=== PATIENT | female | born 1950 | race Caucasian/White ===

== ENCOUNTER 2017-03-24 06:40 | Inpatient (IN) | payer BC, OTHER ==
[~2017-03-24] VITALS: Ht 170.2 cm; Wt 84.2 kg
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
--- NOTE | 2017-03-29 07:15 | OR ---
ADMIT: 03/24/2017 RM/LOC: 527 [facility] MR#: [id number] [facility]#: [id number] [address] [address] LIO CAIN Mirza [address] [place] [address] Operative/Delivery Room Report SEX: F AGE: 66 : 1950 SURGERY DATE: 03/24/2017 SURGEON: Dustin Rose MD PREOPERATIVE DIAGNOSIS: Right displaced midshaft radius and ulna fracture, closed. POSTOPERATIVE DIAGNOSIS: Right displaced midshaft radius and ulna fracture, closed. PROCEDURE: Right midshaft radius and ulna fracture open reduction, internal fixation. MANUAL MACHINIST: Edwina Bernal PA-C. COMPLICATIONS: None. DESCRIPTION OF PROCEDURE: The patient was taken to the operating room, received a general anesthetic. The right upper extremity was prepped and draped in standard fashion. The arm was exsanguinated and tourniquet inflated. An incision was made over the ulnar border and dissection was carried through the subcutaneous tissue. The deep fascia was divided. We identified the ulnar fracture. It was fairly minimally comminuted. We reduced the fracture, placed a 7-hole plate on the ulna. We placed 3 screws proximally and distally in a compression fashion compressing the fracture site. At that point, we had an anatomic reduction of the ulna. AP and lateral images confirmed good screw placement, good fracture reduction. At that point, we irrigated out the wounds. We repaired the deep tissue with 0 Vicryl, subcutaneous with 2-0 Vicryl, and ahmet in the skin. We then made a new incision on the volar distal forearm. Carried dissection down to the subcutaneous tissue and identified the FCR tendon. We retracted the FCR tendon in a radial direction. There was already a large amount of blunt trauma done to the volar forearm musculature. We released a portion of the flexor pollicis off the radial side of the distal radius. Released a little bit of the pronator teres off more proximally. I cleaned off the end of the fracture site. At that point, we reduced the fracture. It was fairly ADMIT: 03/24/2017 RM/LOC: 527 [facility] MR#: [id number] 2620 [facility] [address] [place] [phone] CAIN VACA Mirza [address] [place] [address] Operative/Delivery Room Report SEX: F AGE: 66 : 1950 minimally again comminuted. We placed a 7-hole plate on the volar mid shaft radius, put a slight bow in the plate to reproduce the radial bow. We then placed a screw proximally, placed a screw distally in a compression fashion, filled the remainder of the screw holes with cortical screws. At that point, we had anatomic reduction of the midshaft radius fracture. AP and lateral oblique images confirmed anatomic reduction of all fractures and good placement of all hardware. We then irrigated out the wounds. Closed the deep tissue with 0 Vicryl, subcutaneous with 2-0 Vicryl, and ahmet in the skin. We applied sterile dressings. She was placed in a short arm splint. She was awakened from anesthesia, taken to Recovery in stable condition. No complications. Dustin Rose MD/ jt JOB #: [id number] CC: Esequiel Singh, Attending Physician Esequiel Singh, Family Physician
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
[2017-03-30] MEDS ORDERED: MIRALAX PACKET17 GM PO (15:34)
[2017-03-30] MEDS ORDERED: DIOVAN HCT 1601 EACH PO (15:34)
[2017-03-30] MEDS ORDERED: PEPCID DPS20 MG PO (15:35)
[2017-03-30] MEDS ORDERED: NORVASC10 MG PO (15:35)
[2017-03-30] MEDS ORDERED: SENOKOT DPS8.6 MG PO (15:35)
[2017-03-30] MEDS ORDERED: FLU VACCINE IM (15:35)
[2017-03-30] MEDS ORDERED: APRESOLINE-DPS25 MG PO (15:36)
[2017-03-30] MEDS ORDERED: LOVENOX DP40 MG/0.4 SQ (15:36)
[2017-03-30] MEDS ORDERED: MAALOX DPS30 ML PO (15:37)
[2017-03-30] MEDS ORDERED: MILK OF MAGNESI10 ML PO (15:37)
[2017-03-30] MEDS ORDERED: BENADRYL-DPS25 MG PO (15:37)
[2017-03-30] MEDS ORDERED: COMPAZINE DPS5 MG PO (15:37)
[2017-03-30] MEDS ORDERED: HYDROCODON-ACE1 EAC2 PO (15:37)
[2017-03-30] MEDS ORDERED: ZOFRAN ODT4 MG PO (15:38)
[2017-03-30] MEDS ORDERED: TYLENOL DPS325 MG PO (15:38)
[2017-03-30] MEDS ORDERED: SENOKOT-S TABL1 EACH PO (15:38)
[2017-03-30] MEDS ORDERED: NITROSTAT0.4 MG SL (15:39)
[2017-03-30] MEDS ORDERED: BONIVA150 MG PO (15:39)
[2017-03-30] MEDS ORDERED: LOPRESSOR DPS50 MG PO (15:41)
[2017-03-30] MEDS ORDERED: GLUCOSAMINE/CHO1 TAB PO (15:41)
[2017-03-30] MEDS ORDERED: ASA325 MG PO (15:42)
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
== END 2017-03-29 14:35 | DRG 511 ==
LOC: ER 06:40 → 5MS 09:03
PROVIDERS: ADMIT Surgery
DX: S52.301A Unspecified fracture of shaft of right radius, initial encounter for closed fracture (principal); S22.039A Unspecified fracture of third thoracic vertebra, initial encounter for closed fracture; S32.512A Fracture of superior rim of left pubis, initial encounter for closed fracture; S52.201A Unspecified fracture of shaft of right ulna, initial encounter for closed fracture; S22.32XA Fracture of one rib, left side, initial encounter for closed fracture; I10 Essential (primary) hypertension; S06.0X9A Concussion with loss of consciousness of unspecified duration, initial encounter; S00.03XA Contusion of scalp, initial encounter; V49.40XA Driver injured in collision with unspecified motor vehicles in traffic accident, initial encounter; E87.6 Hypokalemia; Z79.82 Long term (current) use of aspirin; Z82.49 Family history of ischemic heart disease and other diseases of the circulatory system; Z85.42 Personal history of malignant neoplasm of other parts of uterus; R00.1 Bradycardia, unspecified; R79.89 Other specified abnormal findings of blood chemistry; R33.9 Retention of urine, unspecified; R09.02 Hypoxemia